=== PATIENT | female | born 1955 | race African-American/Black ===

== ENCOUNTER 2016-09-20 03:29 | Inpatient (IN) | payer OTHER ==
[~2016-09-20] VITALS: Ht 170.2 cm; Wt 146.5 kg
[~2016-09-20 03:29] MED LIST: ADVAIR DISKU 11 UNIT INH; AMBIEN 10MG10 MG PO; ASPIRIN81 M1 PO; CARVEDILOL6.25 MG PO; COLACE100 MG PO; COREG 3.125M3.125 MG PO; COREG12.5 MG PO; DEXILANT60 MG PO; FLEXERIL10 MG PO; LASIX20 MG PO; LIPITOR80 MG PO; LISINOPRIL10 MG PO; LISINOPRIL40 MG PO; OXYCODONE HCL30 MG PO; PROTONIX 40MG T40 MG PO; REGLAN10 MG PO; SINGULAIR10 MG PO
--- NOTE | 2016-09-20 03:31 | ED CARDIAC/CP/PALPITATIONS ---
History of Present Illness General Chief Complaint: Chest Pain Stated Complaint: CP Source: patient, old records, EMS Exam Limitations: no limitations Vital Signs & Intake/Output Vital Signs & Intake/Output Vital Signs Date Time Temp Pulse Resp B/P Pulse O2 O2 Flow FiO2 Ox Delivery Rate 09/20 0719 97.8 80 18 138/60 99 Nasal 2.0L Cannula 09/20 0651 69 20 153/71 99 Nasal 2.0L Cannula 09/20 0340 98 Nasal 2.0L Cannula 09/20 0336 97.9 80 18 160/70 100 Allergies Coded Allergies: ibuprofen (Severe, ANAPHYLAXIS 09/02/15) morphine (Severe, ANAPHYLAXIS 09/02/15) oxycodone (From OXYCONTIN) (Severe, ANAPHYLAXIS 09/02/15) Reconcile Medications Aspirin 81 MG CTB 81 MG PO D HEART (Reported) Atorvastatin (Atorvastatin Calcium) 80 MG TAB 80 MG PO D HEART (Reported) Carvedilol (Coreg) 12.5 MG TAB 1 TAB PO BID HEART CYCLOBENZAPRINE HCL (Flexeril) 10 MG TAB 15 MG PO BID MUSCLE (Reported) Dexlansoprazole (Dexilant) 60 MG CAP.DR.BP 1 CAP PO DAILY GERD (Reported) Docusate Sodium (Colace) 100 MG SGL 1 CAP PO BID STOOL SOFTENER (Reported) Fluticasone-Salmeterol (Advair 100-50 Diskus) 1 UNIT INH 1 PUFF INH BID ASTHMA (Reported) Furosemide (Lasix) 20 MG TAB 1 TAB PO DAILY FLUID OVERLOAD Lisinopril 40 MG TAB 1 TAB PO DAILY HTN (Reported) Montelukast Sodium (Singulair) 10 MG TAB 1 TAB PO DAILY ALLERGIES (Reported) OXYCODONE HCL (Oxycodone HCl) 30 MG TAB 1 TAB PO TID PAIN (Reported) Pantoprazole Sodium (Protonix) 40 MG TAB 1 TAB PO DAILY GERD (Reported) Zolpidem Tartrate (Ambien 10MG) 10 MG TAB 1 TAB PO QPM SLEEP (Reported) Triage Nurses Notes Reviewed? yes Onset: Abrupt Duration: hour(s): (2) Timing: multiple episodes today Quality/Severity: moderate, sharp Location: central Radiation: LEFT NECK, LEFT SHOULDER, LEFT UPPER BACK Activities at Onset: TALKING WITH FRIEND/SITTING Aspirin Today: 81 mg x 4 Associated Symptoms: DYSPNEA, DIAPHRESIS, NAUSEA HPI: This is a 61-year-old female with history of hypertension, coronary disease status post angioplasty in 2009 who presents to the ER from home for chief complaint of chest pain that started around 11:30. She says she was in her house talking to her girlfriend and laughing when she started to feel a tightness in her chest. She thought maybe it was her acid reflux and took some Dexilant with some relief. After that she felt a squeezing pain in her chest that radiated up to her neck in her ear and her job. She states that it then radiated to her left shoulder and left upper back. She became very nauseous and then very diaphoretic. Her girlfriend asked her if she was okay and then told her to take 2 baby aspirin. When it happened again they decided to call the embolus. She was given [address] to the hospital as well as a slight sunburn lingual nitroglycerin. Patient states that the pain in her ear and jaw and back are gone but she still has some persistent chest tightness. She rates the pain pain is 5 x 10. She is an active smoker still. She states the chest pain happened when she was at rest. Patient follows up with Dr. Grant cardiology. She has been compliant with her medications. (SHEEBA JARA,JED) Past History Travel History Traveled to [place] past 21 day No Medical History Any Pertinent Medical History? 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 BROTHER (CVA, hypertension and diabetes). SISTER (Hypertension, pulmonary embolism). Hx Contributory? No (SHEEBA JARA,JED) Review of Systems Review of Systems Constitutional: Denies: chills, fever. EENTM: Reports: no symptoms. Respiratory: Reports: short of breath. Denies: cough, sputum production. Cardiovascular: Reports: chest pain. Denies: palpitations, peripheral edema, syncope. GI: Reports: no symptoms. Genitourinary: Reports: no symptoms. Musculoskeletal: Reports: back pain, neck pain. Denies: muscle pain, muscle stiffness. Skin: Reports: no symptoms. Neurological/Psychological: Reports: no symptoms. Hematologic/Endocrine: Denies: bruising, bleeding, polyuria, polydipsia. Immunologic/Allergic: Denies: splenectomy. All Other Systems: Reviewed and Negative (JED ALY MD) Physical Exam Physical Exam General Appearance: well developed/nourished, alert, awake, anxious, mild distress Head: atraumatic, normal appearance Eyes: Bilateral: normal appearance, PERRL, EOMI. Ears, Nose, Throat: normal pharynx, normal ENT inspection, abnormal Tympanic (R) Neck: normal inspection, supple, full range of motion Respiratory: normal breath sounds, chest non-tender, no respiratory distress Cardiovascular: regular rate/rhythm Peripheral Pulses: 2+ radial (R), 2+ radial (L) Gastrointestinal: normal bowel sounds, OBESE Extremities: normal inspection, normal capillary refill, normal range of motion Neurologic/Psych: no motor/sensory deficits, awake, alert, oriented x 3 Skin: intact, normal color, warm/dry Core Measures ACS in differential dx? No Severe Sepsis Present: No Septic Shock Present: No (JED ALY MD) Progress Differential Diagnosis: AMI, aortic dissection, atrial fibrillation, costochondritis, musculoskeletal pain, myocarditis, pericarditis, pneumonia, pneumothorax, pulmonary embolism, PUD/GERD, WPW syndrome Plan of Care: Orders Procedure Date/time Status Heart Healthy Diet 09/20 B Active TROPONIN LEVEL 09/20 0730 Complete EKG 09/20 0730 Active Add-on Test (ER Only) 09/20 0454 Active Telemetry/Operations Superintendent 09/20 0349 Active B-TYPE NATRIURETIC PEP (BNP) 09/20 034 Complete TROPONIN LEVEL 09/20 033 Complete COMPREHENSIVE METABOLIC PANEL 09/20 033 Complete CBC WITHOUT DIFFERENTIAL 09/20 338 Complete EKG 09/20 033 Active Current Medications Sig/Lenny Start time Last Medication Dose Stop Time Status Admin Metoprolol Tartrate 25 MG ONCE ONE 09/20 0830 UNVr (Lopressor) 09/20 08 Nitroglycerin 1 GM ONCE ONE 09/20 0830 UNVr (Nitro-Bid) 09/20 0831 Laboratory Tests 09/20/16 0726: Troponin I < 0.01 09/20/16 0340: Anion Gap 10, Estimated GFR > 60, BUN/Creatinine Ratio 30.0 H, Glucose 101 H, Calcium 9.6, Total Bilirubin 0.5, AST 15, ALT 22, Alkaline Phosphatase 88, Troponin I < 0.01, [id number]-Q-Ltilhzxepwc Pept 321 H, Total Protein 7.6, Albumin 3.9 , Globulin 3.7, Albumin/Globulin Ratio 1.1, CBC w Diff NO MAN DIFF REQ, RBC 4.08 L, MCV 90.5, MCH 29.0, RDW 15.3 H, MPV 8.8, Gran % 75.0, Lymphocytes % 18.2 L , Monocytes % 4.1, Eosinophils % 2.6, Basophils % 0.1, Absolute Granulocytes 8.5 H, Absolute Lymphocytes 2.1, Absolute Monocytes 0.5, Absolute Eosinophils 0.3, Absolute Basophils 0, PUBS MCHC 32.0 L 4:49 AM CHEST PAIN FREE AFTER SL NITRO. 6:45 AM MESSAGE LEFT FOR DR GRANT TO CONSULT. (SHEEBA JARA,JED) Diagnostic Imaging: Viewed by Me: Radiology Read. Discussed w/RAD: Radiology Read. CXR Impression: PATIENT: STEPHON LOFTON PRESENT AGE: 61 PATIENT ACCOUNT NO: [id number] : 53 LOCATION: [facility] ORDERING PHYSICIAN: JED ALY MD SERVICE DATE: 09/20/16 EXAM TYPE: RAD - XRY-PORTABLE CHEST XRAY EXAMINATION: CHEST 1 VIEW CLINICAL INFORMATION: Chest pain. COMPARISON: 06/30/2015. TECHNIQUE: An AP view of the chest is provided. FINDINGS : The cardiac silhouette is at the upper limits of normal, but stable. There is interstitial prominence noted throughout both lungs The mediastinal and hilar contours are unremarkable. There are neither pleural effusions nor pneumothoraces. There are no consolidations. Partially visualized is intact cervical spine fusion hardware. IMPRESSION: Interstitial prominence throughout both lungs likely field sales representative of moderate vascular congestion. DICTATED BY: KALPESH LUCIANO MD DATE/TIME DICTATED:09/20/16445 DYE WINCH OPERATOR:CAMI DATE/TIME TRANSCRIBED:09/20/16445 CONFIDENTIAL, DO NOT COPY WITHOUT APPROPRIATE AUTHORIZATION. <Electronically signed in Other Vendor System> SIGNED BY: KALPESH LUCIANO MD 09/20/16 0451 Initial ED EKG: LBBB Prior EKG: unchanged Hand-Off Endorsed To: COOKIE SOL MD Endorsed Time: 0700 Pending: EKG, labs (JED ALY MD) Comments: 09/20/2016 8:30:42 AM I have just reevaluated stephon (she was asleep upon my arrival to the room). Upon awakening the patient states she is still experiencing chest and left jaw tightness. The discomfort is better than upon arrival. I discussed her case with Dr. Retana who feel she will need to be admitted for further evaluation and treatment. He has requested to hold on any anticoagulation until she is evaluated by either himself or Dr. Grant. (COOKIE SOL MD) Departure Departure Disposition: STILL A PATIENT Condition: Stable Clinical Impression Primary Impression: Chest pain at rest Referrals: PATIENT HAS NO PRIMARY CARE DR (PCP/Family) Departure Forms: Customer Survey General Discharge Information (JED ALY MD) Observation Note Spoke With: Stalin RETANA MD Place Patient In: Non-ED OBS Care Area Rationale for Observation: My rational for observation is as follows patient has a chest pain syndrome very concerning for an acute coronary syndrome. She is still having chest pain despite treatment in the emergency department. I do not feel she is a good candidate for outpatient management at this point and now requires for continuous cardiac monitoring (for the possibility of dysrhythmia), serial troponins and EKGs and consideration of imaging studies such as echocardiogram or cardiac catheterization. Stress test should also be considered.. (COOKIE SOL MD) Critical Care Note Critical Care Note Critical Care Time: non-applicable (JED ALY MD)
[2016-09-20 03:54] LABS: ABSOLUTE BASOPHIL COUNT 0 /CUMM (0.0-0.2); ABSOLUTE EOSINOPHIL COUNT 0.3 /CUMM (0.0-0.7); ABSOLUTE GRANULOCYTE CT 8.5 /CUMM (1.4-6.5); ABSOLUTE LYMPH COUNT 2.1 /CUMM (1.2-3.4); ABSOLUTE MONOCYTE COUNT 0.5 /CUMM (0.10-0.60); BASOPHIL % 0.1 % (0.0-2.0); EOSINOPHIL % 2.6 % (0-5); HEMATOCRIT 36.9 % (37-47); MEAN CORPUSCULAR VOLUME 90.5 FL (81.0-99.0); MEAN PLATELET VOLUME 8.8 FL (7.4-10.4); PLATELET COUNT 282 /CUMM (130-400); RBC DISTRIBUTION WIDTH 15.3 % (11.5-14.5); RED BLOOD CELL CT 4.08 /CUMM (4.20-5.40); WHITE BLOOD CELL COUNT 11.3 /CUMM (4.8-10.8)
[2016-09-20] MEDS ORDERED: DEXILANT60 M1 PO (04:05)
--- NOTE | 2016-09-20 04:51 | RADIOLOGY REPORT ---
EXAMINATION: CHEST 1 VIEW CLINICAL INFORMATION: Chest pain. COMPARISON: 06/30/2015. TECHNIQUE: An AP view of the chest is provided. FINDINGS: The cardiac silhouette is at the upper limits of normal, but stable. There is interstitial prominence noted throughout both lungs The mediastinal and hilar contours are unremarkable. There are neither pleural effusions nor pneumothoraces. There are no consolidations. Partially visualized is intact cervical spine fusion hardware. IMPRESSION: Interstitial prominence throughout both lungs likely field representative of moderate vascular congestion.
--- NOTE | 2016-09-20 09:02 | History & Physical ---
General Information and HPI MD Statement: I have seen and personally examined CRYSTAL CHAVARRIA and documented this H&P. The patient is a 61 year old F who presented with a patient stated chief complaint of [chest pain]. Source of Information: patient, family Exam Limitations: no limitations History of Present Illness: Mrs. Chavarria is a 61-year-old -[place] lady with a PMH of HFrEF with LVEF 35%, global hypokinesis (echo 05/20/2015), CAD S/P stent 2 (2009), negative dipyridamole stress test (05/21/2015), asthma (normal PFTs on 04/07/2016), HTN, chronic back and knee pain secondary to osteoarthritis who presents with complaints of chest pain while at rest. She reports intermittent episodes of epigastric discomfort Monday that she felt were due to reflux, relieved with excellent. Later yesterday evening at around 11:30 while sitting and smoking a cigarette she had sudden onset of bilateral chest tightness which radiated up towards her left shoulder/jaw and down the left arm lasting around 5 minutes. Symptoms were associated with some mild sweating. The symptoms again recurred at around 1 AM after she walks to the bathroom. She reports the same chest tightness radiating up towards her LUE, jaw/gums. This was also associated with increased sweating and nausea. She called EMS, took 2 additional ASA 81 mg which did not provide any relief. She did receive sublingual NTG 1 in route, aspirin and a second dose of Nitro-Bid on arrival in the ED that did relieve the pain. Over the past 2 months she reports intermittent episodes of yellow productive cough. She endorses difficulty falling asleep during the past 1 week due to a cough but denies any new symptoms in line with orthopnea, PND, exertional dyspnea or worsening swelling in her lower extremities. She reports that recent medication changes include increasing off carvedilol from 12.5mg BID up to 25 mg BID and discontinuation of lisinopril. Allergies/Medications Allergies: Coded Allergies: ibuprofen (Severe, ANAPHYLAXIS 09/02/15) morphine (Severe, ANAPHYLAXIS 09/02/15) oxycodone (From OXYCONTIN) (Severe, ANAPHYLAXIS 09/02/15) Home Med list Aspirin 81 MG CTB 81 MG PO D HEART (Reported) Atorvastatin (Atorvastatin Calcium) 80 MG TAB 80 MG PO D HEART (Reported) CYCLOBENZAPRINE HCL (Flexeril) 10 MG TAB 15 MG PO BID MUSCLE (Reported) Dexlansoprazole (Dexilant) 60 MG ROCKY.BP 1 CAP PO DAILY GERD (Reported) Docusate Sodium (Colace) 100 MG SGL 1 CAP PO BID STOOL SOFTENER (Reported) Fluticasone-Salmeterol (Advair 100-50 Diskus) 1 UNIT INH 1 PUFF INH BID ASTHMA (Reported) Furosemide (Lasix) 20 MG TAB 1 TAB PO DAILY FLUID OVERLOAD Montelukast Sodium (Singulair) 10 MG TAB 1 TAB PO DAILY ALLERGIES (Reported) OXYCODONE HCL (Oxycodone HCl) 30 MG TAB 1 TAB PO TID PAIN (Reported) Zolpidem Tartrate (Ambien 10MG) 10 MG TAB 1 TAB PO QPM SLEEP (Reported) Past History Travel History Traveled to [place] past 21 day No Medical History Neurological: NONE EENT: NONE Cardiovascular: hypertension, 2 STENTS Respiratory: asthma, SLEEP APNEA Gastrointestinal: GERD Hepatic: NONE Renal: NONE Musculoskeletal: osteoarthritis Psychiatric: NONE Endocrine: NONE Blood Disorders: NONE Cancer(s): NONE 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 BROTHER (CVA, hypertension and diabetes). SISTER (Hypertension, pulmonary embolism). Psychosocial History Where do you live? Home Services at Home: None Smoking Status: Current Everyday Smoker ETOH Use: occasional use Functional Ability ADLs Independent: dressing, eating, toileting, bathing. Ambulation: independent Review of Systems Review of Systems Constitutional: Reports: see HPI. EENTM: Reports: no symptoms. Cardiovascular: Reports: see HPI. Respiratory: Reports: see HPI. GI: Reports: see HPI. Musculoskeletal: Reports: no symptoms. Skin: Reports: no symptoms. Hematologic/Endocrine: Reports: no symptoms. Exam & Diagnostic Data Last 24 Hrs of Vital Signs/I&O Vital Signs Date Time Temp Pulse Resp B/P Pulse O2 O2 Flow FiO2 Ox Delivery Rate 09/20 1018 99 Nasal Cannula 09/20 1012 98.0 70 18 128/66 99 Nasal 2.0L Cannula 09/20 0849 98.2 68 131/60 09/20 0848 98.2 74 18 131/60 99 Nasal 2.0L Cannula 09/20 0719 97.8 80 18 138/60 99 Nasal 2.0L Cannula 09/20 0651 69 20 153/71 99 Nasal 2.0L Cannula 09/20 0340 98 Nasal 2.0L Cannula 09/20 0336 97.9 80 18 160/70 100 Intake & Output 09/20 1600 09/20 0800 09/20 0000 Intake Total 120 0 Output Total Balance 120 0 Intake, Oral 120 0 Patient 323 lb 323 lb Weight Physical Exam General Appearance Alert, Cooperative, No Acute Distress Skin No Breakdown HEENT EOMI, Mucous Membr. moist/pink Cardiovascular Regular Rate, Normal S1, Normal S2, Distant heart sounds. Systolic murmur grade 2/6 in the aortic region. Thrill present in the pulmonic region Lungs Normal Air Movement, Distant breath sounds Abdomen Normal Bowel Sounds, Soft, No Tenderness Extremities Normal Pulses, 1+ pitting eedema BL LE Last 24 Hrs of Labs/Abbe: Laboratory Tests 09/20/16 0726: Troponin I < 0.01 09/20/16 0340: Anion Gap 10, Estimated GFR > 60, BUN/Creatinine Ratio 30.0 H, Glucose 101 H, Calcium 9.6, Phosphorus Pending, Magnesium Pending, Total Bilirubin 0.5, AST 15, ALT 22, Alkaline Phosphatase 88, Troponin I < 0.01, Lgg-K-Icgxgmpzhhs Pept 321 H, Total Protein 7.6, Albumin 3.9, Globulin 3.7, Albumin/Globulin Ratio 1.1, TSH Pending, Free T4 Pending, CBC w Diff NO MAN DIFF REQ, RBC 4.08 L, MCV 90.5, MCH 29.0, RDW 15.3 H, MPV 8.8, Gran % 75.0, Lymphocytes % 18.2 L, Monocytes % 4.1, Eosinophils % 2.6, Basophils % 0.1, Absolute Granulocytes 8.5 H, Absolute Lymphocytes 2.1, Absolute Monocytes 0.5, Absolute Eosinophils 0.3, Absolute Basophils 0, PUBS MCHC 32.0 L Diagnostic Data EKG Results Sinus rhythm, HR 59. LBBB. TN interval 180. QTC 484 CXR Results Interstitial prominence throughout both lungs likely fundraising sale representative of moderate vascular congestion. Assessment/Plan Assessment: 61-year-old -[place] lady with a PMH of HFrEF with LVEF 35%, global hypokinesis (echo 05/20/2015), CAD S/P stent 2 (2009), negative dipyridamole stress test (05/21/2015), asthma (normal PFTs on 04/07/2016), HTN, chronic back and knee pain secondary to osteoarthritis who presents with complaints of chest pain while at rest. Symptoms occurred twice with what she describes as chest tightness radiating towards the left chest wall, Sussy, gums and down the left arm. First episode lasted 5 minutes, the second episode lasting until she arrived in the ED and received her second dose of nitroglycerin. Recent medication changes include carvedilol 12.5 mg BID increased to 25 mg BID, discontinuation of lisinopril. VS on admission: BP 160/70, HR 80, RR 18, SPO2 100% on 2 LNC, T 97.9 Pertinent labs: WBC 11.3, H&H 11.8/36.9, platelets 282K, sodium 147, potassium 3.8,, chloride 105, bicarbonate 31, BUN/CR 21/0.7 Troponin: 0.01, 0.01 ProBNP: 300 and Chest x-ray as indicated above Problem list: 1. Unstable angina 2. History of HFrEF with LVEF 35%, global hypokinesis (echo 05/20/2015), CAD S/P stent 2 (2009) 3. CAD s/p stent placement 4. Asthma 5. Hypertension 6. GERD 7. Chronic pain Plan: * Admit to telemetry for continuous cardiac monitoring * Repeat EKG/troponin at 1300 hrs. * We'll continue her on Coreg, ASA 81 mg, atorvastatin 80 mg. Follow-up lipid panel in the a.m. * We'll discuss with cardiology if the need for repeat stress test versus cath with applying her case * Mild hypokalemia of 3.8. We'll replete with 40 mEq K-Dur * Follow-up magnesium and phosphorus levels and replete if below 2.0 * No evidence of decompensation at this time. ProBNP 321 though can be falsely low tih her cardiac Hx. Will continue on Lasix 20 mg daily * Mechelle Mata TRCs for respiratory care * Continue with dexilant for reflux symptoms * Heart healthy diet * Lovenox for DVT prophylaxis * Full code * Nicotine patch for tobacco dependence As Ranked By This Provider Problem List: 1. Unstable angina 2. HFrEF (heart failure with reduced ejection fraction) 3. CAD (coronary artery disease) 4. Left bundle-branch block 5. Asthma 6. Tobacco dependence 7. Gastro-esophageal reflux Core Measures/Miscellaneous Acute Coronary Syndrome ACS Diagnosis: No Cerebrovascular Accident CVA/TIA Diagnosis: No Congestive Heart Failure CHF Diagnosis: No Venous Thromboembolism VTE Risk Factors: Age > 40 [facility] d/t: No contraindications No VTE Pharm Prophylaxis d/t: No contraindications VTE Diagnosis: No VTE Type: NONE VTE Confirmed by (Test): NONE Severe Sepsis Severe Sepsis Present: No Septic Shock Septic Shock Present: No Miscellaneous Documentation Attending Case Discussed With: TIKA ECHOLS MD Primary Care Physician: PATIENT HAS NO PRIMARY CARE DR Patient sees these Specialists Cardiology (Dr. Echols) Level of Patient Care: Telemetry Resident Review Statement Resident Statement: examined this patient, discussed with internal affairs investigator, agreed with internal affairs investigator, discussed with family, reviewed EMR data (avail), discussed with case mgmt
[2016-09-20 10:12] VITALS: BP 128/66
--- NOTE | 2016-09-20 11:10 | Cons- Cardiology ---
See Addendum POLLY PETER MD 09/20/16 1110: General Information and HPI Consulting Request Date of Consult: 09/20/16 Requested By: TIKA GRANT MD Reason for Consult: CHEST PAIN Source of Information: patient, family, old records Exam Limitations: no limitations History of Present Illness: Ms. Chavarria is a 61-year-old lady with a medical history of hypertension, on a artery disease status post stenting back in 2009, a recurrent cardiac catheterization in 2011 without any stenting, obesity, hyperlipidemia, hypertension, COPD and osteoarthritis that presented to the emergency room while experiencing chest pain at rest. A cardiology consultation was requested for the same. She initially thought chest pain was related to GERD and took some to excellent. She then noted radiating chest pain to the jaw and left upper shoulder. She also complained of nausea and became very diaphoretic. She took 2 baby aspirin at home and then received another 2 baby aspirin in the ambulance on her way to the emergency room. Initially her chest pain was 10 out of 10 and after nitroglycerin it is now currently 3 out of 10. Allergies/Medications Allergies: Coded Allergies: ibuprofen (Severe, ANAPHYLAXIS 09/02/15) morphine (Severe, ANAPHYLAXIS 09/02/15) oxycodone (From OXYCONTIN) (Severe, ANAPHYLAXIS 09/02/15) Home Med List: Aspirin 81 MG CTB 81 MG PO D HEART (Reported) Atorvastatin (Atorvastatin Calcium) 80 MG TAB 80 MG PO D HEART (Reported) CYCLOBENZAPRINE HCL (Flexeril) 10 MG TAB 15 MG PO BID MUSCLE (Reported) Dexlansoprazole (Dexilant) 60 MG CAP.DR.BP 1 CAP PO DAILY GERD (Reported) Docusate Sodium (Colace) 100 MG SGL 1 CAP PO BID STOOL SOFTENER (Reported) Fluticasone-Salmeterol (Advair 100-50 Diskus) 1 UNIT INH 1 PUFF INH BID ASTHMA (Reported) Furosemide (Lasix) 20 MG TAB 1 TAB PO DAILY FLUID OVERLOAD Montelukast Sodium (Singulair) 10 MG TAB 1 TAB PO DAILY ALLERGIES (Reported) OXYCODONE HCL (Oxycodone HCl) 30 MG TAB 1 TAB PO TID PAIN (Reported) Zolpidem Tartrate (Ambien 10MG) 10 MG TAB 1 TAB PO QPM SLEEP (Reported) Review of Systems Review of Systems Constitutional: Reports: see HPI. 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 BROTHER (CVA, hypertension and diabetes). SISTER (Hypertension, pulmonary embolism). Psychosocial History Where Do You Live? Home Services at Home: None Smoking Status: Current Everyday Smoker ETOH Use: occasional use Functional Ability ADLs Independent: dressing, eating, toileting, bathing. Ambulation: independent Exam & Diagnostic Data Vital Signs and I&O Vital Signs Date Time Temp Pulse Resp B/P Pulse O2 O2 Flow FiO2 Ox Delivery Rate 09/20 1018 99 Nasal Cannula 09/20 1012 98.0 70 18 128/66 99 Nasal 2.0L Cannula 09/20 0849 98.2 68 131/60 09/20 0848 98.2 74 18 131/60 99 Nasal 2.0L Cannula 09/20 0719 97.8 80 18 138/60 99 Nasal 2.0L Cannula 09/20 0651 69 20 153/71 99 Nasal 2.0L Cannula 09/20 0340 98 Nasal 2.0L Cannula 09/20 0336 97.9 80 18 160/70 100 Intake & Output 09/20 1600 09/20 0800 09/20 0000 09/19 1600 09/19 0800 09/19 0000 Intake Total 120 0 Output Total Balance 120 0 Intake, Oral 120 0 Patient 323 lb 323 lb Weight Physical Exam General Appearance: well developed/nourished, no apparent distress, alert, awake , comfortable, obese Eyes: Bilateral: normal appearance, PERRL, EOMI. Ears, Nose, Throat: normal pharynx, normal ENT inspection Respiratory: normal breath sounds, chest non-tender Cardiovascular: regular rate/rhythm Gastrointestinal: normal bowel sounds, soft, non-tender Diagnostic Data EKG Results Rate 59, TN 180, QRS 158, QTC 484 Sinus rhythm, LBBB CXR Results PATIENT: CRYSTAL CHAVARRIA PRESENT AGE: 61 PATIENT ACCOUNT NO: [id number] : 53 LOCATION: [facility] ORDERING PHYSICIAN: JED ALY MD SERVICE DATE: 09/20/16 EXAM TYPE: RAD - XRY-PORTABLE CHEST XRAY EXAMINATION: CHEST 1 VIEW CLINICAL INFORMATION: Chest pain. COMPARISON: 06/30/2015. TECHNIQUE: An AP view of the chest is provided. FINDINGS: The cardiac silhouette is at the upper limits of normal, but stable. There is interstitial prominence noted throughout both lungs The mediastinal and hilar contours are unremarkable. There are neither pleural effusions nor pneumothoraces. There are no consolidations. Partially visualized is intact cervical spine fusion hardware. IMPRESSION: Interstitial prominence throughout both lungs likely physician relations representative of moderate vascular congestion. DICTATED BY: KALPESH LUCIANO MD DATE/TIME DICTATED:09/20/16445 COOK NIGHT:[place] DATE/TIME TRANSCRIBED:09/20/16445 CONFIDENTIAL, DO NOT COPY WITHOUT APPROPRIATE AUTHORIZATION. <Electronically signed in Other Vendor System> SIGNED BY: KALPESH LUCIANO MD 09/20/16 0451 Assessment/Plan Assessment/Plan ASSESSMENT- 1. Unstable angina 2. [place] CAD s/p stents in 2009 3. HTN 4. HLD 5. Current nicotine use 6. COPD 7. HFrEF, echo May 2015 showed an EF of 35% Presantine Stress test 05/21/15- IMPRESSION: Abnormal study with fixed perfusion abnormalities which are likely diffuse, with some sparing of the lateral wall. No regions of reversible ischemia are visualized. There is moderate left ventricular chamber dilatation and moderately to markedly severe diffuse left ventricular hypokinesis. Left ventricular ejection fraction is markedly depressed. PLAN- - Trend troponin and EKG - Obtain echocardiogram - Continue aspirin, statin, Lasix at home doses - Start Coreg 3.125 mg twice a day - Start on heparin drip for now, will consider repeating presantine nuclear vs transfer for cath based off the results of the echo - Obtain reports from [facility] regarding her cath's in 2009 and 2011 Consult Acknowledgment - Thank you for your consult request. KALPESH RETANA MD 09/20/162014: Assessment/Plan Assessment/Plan Attending Addendum: The patient was seen and examined by me and all available data, including ECGs, were personally reviewed by myself. The case was discussed with the patient and her as well as the medical housestaff. I agree with the plan as outlined above. Consult Acknowledgment - Thank you for your consult request.
[2016-09-20 13:15] VITALS: BP 136/70
[2016-09-20 13:25] LABS: PT 11.7 SEC (9.4-12.5); PTT 35 SEC (25-37)
[2016-09-20 16:22] VITALS: BP 142/76
--- NOTE | 2016-09-20 20:02 | ECHOCARDIOGRAM REPORT ---
CRYSTAL LOFTON Age: 61 : 1955 Gender: F Exam Date: 09/20/2016 16:46 Exam Location: [address] Ht (in): 67 Wt (lb): 323 BSA: 2.72 BP: 136 / 70 Ordering Physician: DONAVAN REIS MD Referring Physician: Sherrie Moncada MD Technologist: Shonna Tapia [facility] Room Number: 174-01 Indications: CHEST PAIN Rhythm: Sinus Technical Quality: Fair FINDINGS Left Ventricle Mild left ventricular dilatation. Left ventricular wall thickness increased. Normal left ventricular ejection fraction estimated at 55-60%. Abnormal septal motion consistent with left bundle branch block. Right Ventricle Right ventricle not well visualized, grossly normal. Right Atrium Normal right atrial size. Left Atrium Moderate left atrial dilatation. Mitral Valve Mild thickening/calcification of the anterior mitral valve leaflet. Mitral annular calcification. Moderate mitral regurgitation. Aortic Valve Trileaflet aortic valve. Diffuse thickening of the aortic valve cusps with reduced excursion. Mild aortic stenosis. Mild aortic regurgitation. Tricuspid Valve Tricuspid valve not well visualized, grossly normal. Pulmonic Valve Pulmonic valve not well visualized, grossly normal. Mild pulmonic regurgitation. Pericardium No pericardial effusion. Great Vessels Aortic root and proximal ascending aorta not well visualized, grossly normal. CONCLUSIONS 1. This was a technically difficult and limited examination. 2. Fibrocalcific degeneration is present in the aortic valve with mild valvular stenosis (PG 22 mmHg; MG 13 mmHg; BLADIMIR 2.3 cm2) and mild aortic insufficiency. 3. Thickening and calcification of the mitral leaflets is present with anular calcification and moderate eccentric mitral insufficiency with moderate left atrial enlargement. 4. There is no significant pericardial fluid present. 5. The left ventricular chamber is mildly dilated with eccentric hypertrophy and an ejection fraction of greater than 55%. Abnormal septal motion is present with mild hypokinesia of the distal septum. 6. The right heart structures were not optimally assessed. Minimal to mild tricuspid and pulmonic insufficiency are present. The RV systolic pressure could not be accurately assessed. Sherrie Moncada M.D. (Electronically Signed) Final Date: 20 September 2016 20:01 MEASUREMENTS (Male / Female) Normal Values 2D ECHO LV Diastolic Diameter PLAX 6.0 cm 4.2 - 5.9 / 3.9 - 5.3 cm LV Systolic Diameter PLAX 3.7 cm 2.1 - 4.0 cm LV Fractional Shortening PLAX 38.3 % 25 - 46 % LV Ejection Fraction 2D Teich 67.7 % IVS Diastolic Thickness 1.2 cm LVPW Diastolic Thickness 1.2 cm LV Relative Wall Thickness 0.4 RV Internal Dim ED PLAX 2.7 cm 1.9 - 3.8 cm LVOT Diameter 2.1 cm Aortic Root Diameter 2.7 cm LA Systolic Diameter LX 5.2 cm 3.0 - 4.0 / 2.7 - 3.8 cm LA Volume 43.0 cm 18 - 58 / 22 - 52 cm Ascending Aorta Diameter 2.7 cm DOPPLER AV Peak Velocity 247.0 cm/s AV Peak Gradient 24.4 mmHg AV Mean Velocity 171.0 cm/s AV Mean Gradient 13.0 mmHg AV Velocity Time Integral 54.1 cm AI Deceleration [place] 266.0 cm/s AI Peak Velocity 417.0 cm/s AI Pressure Half Time 460.0 ms AI Peak Gradient 69.6 mmHg LVOT Peak Velocity 138.0 cm/s LVOT Peak Gradient 7.6 mmHg LVOT Mean Velocity 94.8 cm/s LVOT Mean Gradient 4.0 mmHg LVOT Velocity Time Integral 31.2 cm LVOT Stroke Volume 108.1 cm AV Area Cont Eq vti 2.0 cm AV Area Cont Eq pk 1.9 cm MV Peak Velocity 135.0 cm/s MV Peak Gradient 7.3 mmHg MV Mean Velocity 78.5 cm/s MV Mean Gradient 3.0 mmHg Mitral E Point Velocity 112.0 cm/s Mitral A Point Velocity 135.0 cm/s Mitral E to A Ratio 0.8 MV PHT Velocity 110.0 cm/s MV Deceleration [place] 304.0 cm/s MV Pressure Half Time 108.6 ms MV Area PHT 2.0 cm MV Deceleration Time 185.0 ms PV Peak Velocity 120.0 cm/s PV Peak Gradient 5.8 mmHg PV Mean Velocity 69.5 cm/s PV Mean Gradient 2.0 mmHg PV Velocity Time Integral 22.0 cm LV E' Lateral Velocity 4.7 cm/s Mitral E to LV E' Lateral Ratio 23.9 LV E' Septal Velocity 5.8 cm/s Mitral E to LV E' Septal Ratio 19.5
[2016-09-20 21:48] LABS: PTT 32 SEC (25-37)
[2016-09-20 22:38] VITALS: BP 144/64
[2016-09-21 04:29] LABS: ABSOLUTE BASOPHIL COUNT 0 /CUMM (0.0-0.2); ABSOLUTE EOSINOPHIL COUNT 0.3 /CUMM (0.0-0.7); ABSOLUTE MONOCYTE COUNT 0.6 /CUMM (0.10-0.60); BASOPHIL % 0.3 % (0.0-2.0); EOSINOPHIL % 3.7 % (0-5); GRANULOCYTE % 66.3 % (42.2-75.2); HEMATOCRIT 32.6 % (37-47); MEAN CORPUSCULAR HGB 28.9 PG (27.0-31.0); MEAN CORPUSCULAR HGB CONC 32.3 G/DL (33.0-37.0); MEAN CORPUSCULAR VOLUME 89.5 FL (81.0-99.0); MEAN PLATELET VOLUME 8.2 FL (7.4-10.4); PLATELET COUNT 281 /CUMM (130-400); RBC DISTRIBUTION WIDTH 15.4 % (11.5-14.5); RED BLOOD CELL CT 3.64 /CUMM (4.20-5.40)
[2016-09-21 04:47] LABS: PTT > 120 SEC (25-37)
--- NOTE | 2016-09-21 07:21 | PN- Housestaff ---
Subjective Follow-up For: 1. Chest pain 2. Unstable angina Complaints: no complaints Tele-Events Since Last Visit: Age-related from 96-104, no evidence Subjective: The patient was lying comfortably in bed, in no acute distress, no current chest pain, lightheadedness, nausea vomiting or diarrhea. Review of Systems Constitutional: Reports: see HPI. EENTM: Reports: no symptoms. Cardiovascular: Reports: peripheral edema. Denies: chest pain, orthopena, palpitations. Respiratory: Denies: cough, hemoptysis, orthopnea, short of breath. Gastrointestinal: Reports: no symptoms. Genitourinary: Reports: no symptoms. Musculoskeletal: Reports: no symptoms. Objective Last 24 Hrs of Vital Signs/I&O Vital Signs Date Time Temp Pulse Resp B/P Pulse O2 O2 Flow FiO2 Ox Delivery Rate 09/21 08 98.2 65 18 158/70 96 Room Air 09/20 2238 98.4 76 20 144/64 96 Room Air 09/20 2214 Room Air Room Air 09/20 2210 74 144/64 09/20 1622 98.2 71 20 142/76 97 Room Air 09/20 1322 97.6 60 18 136/70 98 Room Air 09/20 1315 97.6 60 18 136/70 98 Room Air Intake & Output 09/21 1600 09/21 0800 09/21 0000 Intake Total 267 640 Output Total Balance 267 640 Intake, IV 217 160 Intake, Oral 50 480 Number 0 Bowel Movements Physical Exam General Appearance: Alert, Oriented X3, Cooperative, No Acute Distress Neck: Supple, No JVD Cardiovascular: Normal S1, Normal S2, No Murmurs, irregularly irregular Lungs: Clear to Auscultation, Normal Air Movement Abdomen: Normal Bowel Sounds, Soft, No Tenderness Neurological: Normal Speech, Strength at 5/5 X4 Ext Extremities: 1+ ankle edema Vascular: Normal Pulses Current Medications: Current Medications Sig/Lenny Start time Last Medication Dose Route Stop Time Status Admin Acetaminophen 650 MG Q6P PRN 09/20 1015 AC PO Albuterol Sulfate 2 PUF Q4 HRS NEEDED PRN 09/20 2230 AC INH Aspirin 81 MG DAILY 09/21 1000 AC PO Atorvastatin Calcium 80 MG 1700 09/20 1700 AC 09/20 PO 1824 Budesonide/ 2 PUF BID 09/20 1042 AC 09/20 Formoterol Fumarate INH 2210 Carvedilol 3.125 MG BID 09/20 2199 DC 09/20 PO 2210 Cyclobenzaprine HCl 15 MG BID 09/20 2200 AC 09/20 PO 220 Docusate Sodium 100 MG BID 09/20 2199 AC 09/20 PO 221 Enoxaparin Sodium 40 MG DAILY 09/21 1000 CAN SC Furosemide 0 .STK-MED ONE 09/20 1124 DC PO Furosemide 20 MG DAILY 09/20 1043 AC 09/20 PO 1125 Heparin Sodium 8,800 UNIT ONCE ONE 09/20 2199 DC 09/20 (Porcine) IV 09/20 Heparin Sodium 10,000 UNIT .STK-MED ONE 09/20 215 DC (Porcine) IV 09/20 215 Heparin Sodium 25,000 UNIT Q24H 09/20 1215 AC 09/20 (Porcine) IV 1358 Sodium Chloride 500 ML Magnesium Sulfate 1 GM Q2H 09/21 0730 AC Dextrose/Water 100 ML IV 09/21 1129 Montelukast Sodium 10 MG DAILY 09/20 1043 AC 09/20 PO 1143 Nicotine 0 .STK-MED ONE 09/20 1125 DC TOP Nicotine 14 MG DAILY 09/20 1108 AC 09/20 TOP 1125 Omeprazole 0 .STK-MED ONE 09/20 1409 DC PO Omeprazole 40 MG DAILY AC 09/20 1300 AC 09/21 PO 0529 Oxycodone HCl 30 MG TID 09/20 1043 AC 09/20 PO 220 Potassium Chloride 0 .STK-MED ONE 09/20 1124 DC PO Zolpidem Tartrate 10 MG QPM 09/20 2199 AC 09/20 PO 220 Last 24 Hrs of Lab/Abbe Results Last 24 Hrs of Labs/Mics: Laboratory Tests 09/21/16 0410: Anion Gap 6, Estimated GFR > 60, BUN/Creatinine Ratio 30.0 H, Magnesium 1.6, Triglycerides 37, Cholesterol 112, LDL Cholesterol, Calc 69, HDL Cholesterol 36 L, Cholesterol/HDL Ratio 3, APTT > 120 *H, CBC w Diff NO MAN DIFF REQ, RBC 3.64 L, MCV 89.5, MCH 28.9, RDW 15.4 H, MPV 8.2, Gran % 66.3, Lymphocytes % 22.7, Monocytes % 7.0, Eosinophils % 3.7, Basophils % 0.3, Absolute Granulocytes 6.0, Absolute Lymphocytes 2.0, Absolute Monocytes 0.6, Absolute Eosinophils 0.3, Absolute Basophils 0, PUBS MCHC 32.3 L 09/20/16 2105: APTT 32 09/20/16 1203: Troponin I < 0.01 Orders ECHO Findings: Mild left ventricular dilatation. Left ventricular wall thickness increased. Normal left ventricular ejection fraction estimated at 55-60%. Abnormal septal motion consistent with left bundle branch block. Right Ventricle Right ventricle not well visualized, grossly normal. Right Atrium Normal right atrial size. Left Atrium Moderate left atrial dilatation. Mitral Valve Mild thickening/calcification of the anterior mitral valve leaflet. Mitral annular calcification. Moderate mitral regurgitation. Aortic Valve Trileaflet aortic valve. Diffuse thickening of the aortic valve cusps with reduced excursion. Mild aortic stenosis. Mild aortic regurgitation. Tricuspid Valve Tricuspid valve not well visualized, grossly normal. Pulmonic Valve Pulmonic valve not well visualized, grossly normal. Mild pulmonic regurgitation. Pericardium No pericardial effusion. Great Vessels Aortic root and proximal ascending aorta not well visualized, grossly normal. CONCLUSIONS 1. This was a technically difficult and limited examination. 2. Fibrocalcific degeneration is present in the aortic valve with mild valvular stenosis (PG 22 mmHg; MG 13 mmHg; BLADIMIR 2.3 cm2) and mild aortic insufficiency. 3. Thickening and calcification of the mitral leaflets is present with anular calcification and moderate eccentric mitral insufficiency with moderate left atrial enlargement. 4. There is no significant pericardial fluid present. 5. The left ventricular chamber is mildly dilated with eccentric hypertrophy and an ejection fraction of greater than 55%. Abnormal septal motion is present with mild hypokinesia of the distal septum. 6. The right heart structures were not optimally assessed. Minimal to mild tricuspid and pulmonic insufficiency are present. The RV systolic pressure could not be accurately assessed. Radiology Findings: The cardiac silhouette is at the upper limits of normal, but stable. There is interstitial prominence noted throughout both lungs The mediastinal and hilar contours are unremarkable. There are neither pleural effusions nor pneumothoraces. There are no consolidations. Partially visualized is intact cervical spine fusion hardware. IMPRESSION: Interstitial prominence throughout both lungs likely liability claims representative of moderate vascular congestion. Lines/Diet/Fluids Lines: peripheral lines Restraints: none Assessment/Plan Assessment: 61-year-old lady with a medical history of hypertension, coronary artery disease status post stent in 2009, recurrent cardiac cath in 2011 without any stenting, morbid obesity, hyperlipidemia, hypertension, COPD not on home oxygen, osteoarthritis who presents to the emergency department with chest pain at rest, radiating to the jaw and left upper shoulder associated with nausea and diaphoresis, 10/10, decreased to 3/10 after nitroglycerin and aspirin, admitted to telemetry for further management of her chest pain. Assessment and plan: 1. Unstable angina: - Patient presented with classic chest pain, was started on aspirin after loading dose of 325 mg, nitrates and statin - She was also started on heparin drip - 3 sets of troponin and EKG have been negative - Stress test due tomorrow - Cardiology on board - For now will continue with IV heparin, aspirin 81 mg by mouth daily, carvedilol 3.125 mg by mouth twice a day, atorvastatin 80 mg by mouth daily 2. Hyperlipidemia: - Lipid panel was checked that showed triglyceride of 37, total cholesterol 112, LDL 69, HDL 36 - Based on history of CAD, and current unstable angina, will continue on atorvastatin 80 mg by mouth daily 3. COPD: - Not in acute exacerbation, saturation 96% room air - We'll continue with inhalers - [facility] nebs 4. Hypomagnesemia: - 1.6 in am - We'll repeat adequately and recheck in a.m. 5. HFrEF, echo May 2015 showed an EF of 35%, echocardiogram from yesterday shows an EF of 55% to 60 - We'll continue with Lasix 20 mg by mouth daily - Not in florid CHF exacerbation 6. Hypertension: - We'll continue with carvedilol 7. History of smoking: - Continue with nicotine patch 8. Heart healthy diet 9. IV heparin as DVT prophylaxis 10. Full CODE STATUS Problem List: 1. Chest pain syndrome 2. Unstable angina 3. Hypertension 4. Tobacco dependence 5. CAD (coronary artery disease) Pain Ratin Pain Location: No pain Pain Goal: Remain pain free Pain Plan: Roxicodone by mouth 30 3 times a day Tylenol 650 mg every 6 when necessary Tomorrow's Labs & Rationales: CBC, BMP and magnesium to follow H&H and electrolytes DVT/Prophylaxis: pharmacological CBC, BMP and magnesium to follow H&H and electrolytes DVT/Prophylaxis: pharmacological
[2016-09-21 08:00] VITALS: BP 158/70
--- NOTE | 2016-09-21 11:46 | PN- Cardiology ---
Subjective Subjective: The patient is doing well today. She denies any further discomfort this morning. She notes that her symptoms improved after topical nitrates and institution of IV heparin. The pharmacologic nuclear stress test pending. Objective Vital Signs and I&Os Vital Signs Date Time Temp Pulse Resp B/P Pulse O2 O2 Flow FiO2 Ox Delivery Rate 09/21 0800 98.2 65 18 158/70 96 Room Air 09/20 2238 98.4 76 20 144/64 96 Room Air 09/20 2214 Room Air Room Air 09/20 2210 74 144/64 09/20 1622 98.2 71 20 142/76 97 Room Air 09/20 1322 97.6 60 18 136/70 98 Room Air 09/20 1315 97.6 60 18 136/70 98 Room Air Intake & Output 09/21 1600 09/21 0800 09/21 0000 09/20 1600 09/20 0800 09/20 0000 Intake Total 267 640 600 0 Output Total Balance 267 640 600 0 Intake, IV 217 160 Intake, Oral 50 480 600 0 Number 0 Bowel Movements Patient 323 lb 323 lb Weight Current Medications: Current Medications Sig/Lenny Start time Last Medication Dose Route Stop Time Status Admin Acetaminophen 650 MG Q6P PRN 09/20 1015 AC PO Albuterol Sulfate 2 PUF Q4 HRS NEEDED PRN 09/20 2230 AC INH Aspirin 81 MG DAILY 09/21 1000 AC PO Atorvastatin Calcium 80 MG 1700 09/20 1700 AC 09/20 PO 1824 Budesonide/ 2 PUF BID 09/20 1042 AC 09/20 Formoterol Fumarate INH 2210 Carvedilol 3.125 MG BID 09/21 1115 AC PO Carvedilol 3.125 MG BID 09/20 2200 DC 09/20 PO 2210 Cyclobenzaprine HCl 15 MG BID 09/20 2200 AC 09/20 PO 2209 Docusate Sodium 100 MG BID 09/20 2200 AC 09/20 PO 2210 Enoxaparin Sodium 40 MG DAILY 09/21 1000 CAN SC Furosemide 20 MG DAILY 09/20 1043 AC 09/20 PO 1125 Heparin Sodium 8,800 UNIT ONCE ONE 09/20 2199 DC 09/20 (Porcine) IV 09/20 2200 2200 Heparin Sodium 10,000 UNIT .STK-MED ONE 09/20 2156 DC (Porcine) IV 09/20 2157 Heparin Sodium 25,000 UNIT Q24H 09/20 1215 AC 09/20 (Porcine) IV 1358 Sodium Chloride 500 ML Magnesium Sulfate 1 GM Q2H 09/21 0730 DC Dextrose/Water 100 ML IV 09/21 1129 Montelukast Sodium 10 MG DAILY 09/20 1043 AC 09/20 PO 1143 Nicotine 14 MG DAILY 09/20 1108 AC 09/20 TOP 1125 Omeprazole 0 .STK-MED ONE 09/20 1409 DC PO Omeprazole 40 MG DAILY AC 09/20 1300 AC 09/21 PO 0529 Oxycodone HCl 30 MG TID 09/20 1043 AC 09/20 PO 2209 Zolpidem Tartrate 10 MG QPM 09/20 220 AC 09/20 PO 220 Results Last 48 Hrs of Labs/Mics: Laboratory Tests 09/21/16 0410: Anion Gap 6, Estimated GFR > 60, BUN/Creatinine Ratio 30.0 H, Magnesium 1.6, Triglycerides 37, Cholesterol 112, LDL Cholesterol, Calc 69, HDL Cholesterol 36 L, Cholesterol/HDL Ratio 3, APTT > 120 *H, CBC w Diff NO MAN DIFF REQ, RBC 3.64 L, MCV 89.5, MCH 28.9, RDW 15.4 H, MPV 8.2, Gran % 66.3, Lymphocytes % 22.7, Monocytes % 7.0, Eosinophils % 3.7, Basophils % 0.3, Absolute Granulocytes 6.0, Absolute Lymphocytes 2.0, Absolute Monocytes 0.6, Absolute Eosinophils 0.3, Absolute Basophils 0, PUBS MCHC 32.3 L 09/20/16 2105: APTT 32 09/20/16 1203: Troponin I < 0.01 09/20/16 0726: Troponin I < 0.01 09/20/16 0340: Anion Gap 10, Estimated GFR > 60, BUN/Creatinine Ratio 30.0 H, Glucose 101 H, Calcium 9.6, Phosphorus 3.6, Magnesium 1.6, Total Bilirubin 0.5, AST 15, ALT 22, Alkaline Phosphatase 88, Troponin I < 0.01, Far-C-Xsnrktcaygq Pept 321 H, Total Protein 7.6, Albumin 3.9, Globulin 3.7, Albumin/Globulin Ratio 1.1, TSH 1.560, Free T4 1.25, PT 11.7, INR 1.12, APTT 35, CBC w Diff NO MAN DIFF REQ, RBC 4.08 L, MCV 90.5, MCH 29.0, RDW 15.3 H, MPV 8.8, Gran % 75.0, Lymphocytes % 18.2 L, Monocytes % 4.1, Eosinophils % 2.6, Basophils % 0.1, Absolute Granulocytes 8.5 H, Absolute Lymphocytes 2.1, Absolute Monocytes 0.5, Absolute Eosinophils 0.3, Absolute Basophils 0, PUBS MCHC 32.0 L Assessment/Plan Assessment/Plan ASSESSMENT- 1. Unstable angina 2. [place] CAD s/p stents in 2009 3. HTN 4. HLD 5. Current nicotine use 6. COPD 7. HFrEF, echo May 2015 showed an EF of 35% Recommendations: -Continue current medication regimen. -Continue IV heparin pending nuclear stress test. -Further plans after the results of the nuclear stress test are available. Continue telemetry? Yes
[2016-09-21 15:30] VITALS: BP 138/78
[2016-09-21 17:04] LABS: PTT 36 SEC (25-37)
[2016-09-21] MEDS ORDERED: COREG6.25 M1 PO (18:30)
[2016-09-21 23:14] VITALS: BP 138/72
[2016-09-21 23:33] LABS: PTT 72 SEC (25-37)
--- NOTE | 2016-09-22 07:24 | PN- Housestaff ---
Subjective Follow-up For: 1. Unstable Angina Tele-Events Since Last Visit: NST 72 - 83, no events Subjective: No chest pain, patient feels well. Review of Systems Constitutional: Reports: no symptoms. Cardiovascular: Reports: no symptoms. Respiratory: Reports: no symptoms. Gastrointestinal: Reports: no symptoms. Genitourinary: Reports: no symptoms. Objective Last 24 Hrs of Vital Signs/I&O Vital Signs Date Time Temp Pulse Resp B/P Pulse O2 O2 Flow FiO2 Ox Delivery Rate 09/22 08 97.8 79 20 130/70 94 Room Air 09/21 2314 98.2 82 20 138/72 94 Room Air 09/21 2233 82 138/72 09/21 1530 98.3 77 20 138/78 95 Room Air 09/21 1455 65 158/70 Intake & Output 09/22 1600 09/22 0800 09/22 0000 Intake Total 290 880 Output Total Balance 290 880 Intake, IV 240 160 Intake, Oral 50 720 Physical Exam General Appearance: Alert, Oriented X3, Cooperative, No Acute Distress Cardiovascular: Regular Rate, Normal S1, Normal S2, No Murmurs Lungs: Clear to Auscultation, Normal Air Movement Abdomen: Normal Bowel Sounds, Soft, No Tenderness, No Hepatospenomegaly Neurological: Normal Speech, Strength at 5/5 X4 Ext, Normal Tone Extremities: Normal Pulses, positive for edema 1+ bilateral ankles Last 24 Hrs of Lab/Abbe Results Last 24 Hrs of Labs/Mics: Laboratory Tests 09/22/16 1155: APTT Pending 09/22/16 0650: Anion Gap 6, Estimated GFR > 60, BUN/Creatinine Ratio 24.3, Magnesium 1.9, CBC w Diff NO MAN DIFF REQ, RBC 3.65 L, MCV 89.1, MCH 29.5, RDW 15.5 H, MPV 9.1, Gran % 63.5, Lymphocytes % 26.0, Monocytes % 6.6, Eosinophils % 3.5, Basophils % 0.4, Absolute Granulocytes 5.2, Absolute Lymphocytes 2.1, Absolute Monocytes 0.5 , Absolute Eosinophils 0.3, Absolute Basophils 0, PUBS MCHC 33.1 09/21/16 2300: APTT 72 H 09/21/16 1550: APTT 36 Assessment/Plan Assessment: 61-year-old lady with a medical history of hypertension, coronary artery disease status post stent in 2009, recurrent cardiac cath in 2011 without any stenting, morbid obesity, hyperlipidemia, hypertension, COPD not on home oxygen, osteoarthritis who presents to the emergency department with chest pain at rest, radiating to the jaw and left upper shoulder associated with nausea and diaphoresis, 10/10, decreased to 3/10 after nitroglycerin and aspirin, admitted to telemetry for further management of her chest pain. Assessment and plan: 1. Unstable angina: - Patient presented with classic chest pain, was started on aspirin after loading dose of 325 mg, nitrates and statin - Heparin drip stopped today - 3 sets of troponin and EKG have been negative - Stress test today - DC planning to [facility] vs cardiac cath pending results 2. Hyperlipidemia: - Continue atorvastatin 80 mg by mouth daily 3. COPD: - Not in acute exacerbation, saturation 96% room air - We'll continue with inhalers - [facility] nebs 6. HFrEF, echo May 2015 showed an EF of 35%, echocardiogram from yesterday shows an EF of 55% to 60 - We'll continue with Lasix 20 mg by mouth daily - Not in florid CHF exacerbation 6. Hypertension: - We'll continue with carvedilol after she returns from stress test 7. History of smoking: - Continue with nicotine patch 8. Heart healthy diet 9. IV heparin as DVT prophylaxis 10. Full CODE STATUS Problem List: 1. Unstable angina Pain Ratin Pain Location: no pain Pain Goal: Remain pain free Pain Plan: PRN Tylenol Tomorrow's Labs & Rationales: Not needed DVT/Prophylaxis: pharmacological Discharge Plan Discharge Disposition: home Stable for Discharge? No Anticipated Discharge (Day): tomorrow If Discharged Today/In 24 Hrs: enter [facility] discharge ord, CMR done Not needed DVT/Prophylaxis: pharmacological Discharge Plan Discharge Disposition: home Stable for Discharge? No Anticipated Discharge (Day): tomorrow If Discharged Today/In 24 Hrs: enter [facility] discharge ord, CMR done
[2016-09-22 08:00] VITALS: BP 130/70
[2016-09-22 08:18] LABS: ABSOLUTE BASOPHIL COUNT 0 /CUMM (0.0-0.2); ABSOLUTE EOSINOPHIL COUNT 0.3 /CUMM (0.0-0.7); ABSOLUTE GRANULOCYTE CT 5.2 /CUMM (1.4-6.5); ABSOLUTE LYMPH COUNT 2.1 /CUMM (1.2-3.4); ABSOLUTE MONOCYTE COUNT 0.5 /CUMM (0.10-0.60); BASOPHIL % 0.4 % (0.0-2.0); EOSINOPHIL % 3.5 % (0-5); GRANULOCYTE % 63.5 % (42.2-75.2); HEMATOCRIT 32.6 % (37-47); MEAN CORPUSCULAR HGB 29.5 PG (27.0-31.0); MEAN CORPUSCULAR HGB CONC 33.1 G/DL (33.0-37.0); MEAN CORPUSCULAR VOLUME 89.1 FL (81.0-99.0); MEAN PLATELET VOLUME 9.1 FL (7.4-10.4); PLATELET COUNT 270 /CUMM (130-400); RBC DISTRIBUTION WIDTH 15.5 % (11.5-14.5); RED BLOOD CELL CT 3.65 /CUMM (4.20-5.40); WHITE BLOOD CELL COUNT 8.1 /CUMM (4.8-10.8)
[2016-09-22 14:05] LABS: PTT 97 SEC (25-37)
[2016-09-22 15:30] VITALS: BP 138/80
--- NOTE | 2016-09-22 18:56 | PN- Cardiology ---
Subjective Subjective: Stable without recurrendt symptoms Objective Vital Signs and I&Os Vital Signs Date Time Temp Pulse Resp B/P Pulse O2 O2 Flow FiO2 Ox Delivery Rate 09/22 1530 97.7 80 20 138/80 95 Room Air 09/22 0800 97.8 79 20 130/70 94 Room Air 09/21 2314 98.2 82 20 138/72 94 Room Air 09/21 2233 82 138/72 Intake & Output 09/22 1600 09/22 0800 09/22 0000 09/21 1600 09/21 0800 09/21 0000 Intake Total 480 897 551 8926 267 640 Output Total 600 855 Balance -120 290 880 345 267 640 Intake, IV 240 160 250 217 160 Intake, Oral 480 50 720 950 50 480 Number 1 0 Bowel Movements Output, Urine 600 855 Current Medications: Current Medications Sig/Lenny Start time Last Medication Dose Route Stop Time Status Admin Acetaminophen 650 MG Q6P PRN 09/20 1015 AC PO Albuterol Sulfate 2 PUF Q4 HRS NEEDED PRN 09/20 2230 AC INH Aspirin 81 MG DAILY 09/21 1000 AC 09/22 PO 1017 Atorvastatin Calcium 80 MG 1700 09/20 1700 AC 09/22 PO 1709 Budesonide/ 2 PUF BID 09/20 1042 AC 09/22 Formoterol Fumarate INH 1016 Carvedilol 3.125 MG BID 09/21 1115 DC 09/21 PO 09/22 0000 2233 Cyclobenzaprine HCl 15 MG BID 09/20 2200 AC 09/22 PO 1017 Dipyridamole 60 MG ONE ONE 09/22 1100 DC Dextrose/Water 28 ML IV 09/22 1129 Docusate Sodium 100 MG BID 09/20 2200 AC 09/22 PO 1017 Furosemide 20 MG DAILY 09/20 1043 AC 09/22 PO 1017 Heparin Sodium 25,000 UNIT Q24H 09/20 1215 DC 09/22 (Porcine) IV 1015 Sodium Chloride 500 ML Montelukast Sodium 10 MG DAILY 09/20 1043 AC 09/22 PO 1018 Nicotine 14 MG DAILY 09/20 1108 AC 09/22 TOP 1018 Omeprazole 40 MG DAILY AC 09/20 1300 AC 09/22 PO 0619 Oxycodone HCl 30 MG TID 09/20 1043 AC 09/22 PO 1709 Zolpidem Tartrate 10 MG QPM 09/20 2200 AC 09/21 PO 2237 Results Last 48 Hrs of Labs/Mics: Laboratory Tests 09/22/16 1155: APTT 97 H 09/22/16 0650: Anion Gap 6, Estimated GFR > 60, BUN/Creatinine Ratio 24.3, Magnesium 1.9, CBC w Diff NO MAN DIFF REQ, RBC 3.65 L, MCV 89.1, MCH 29.5, RDW 15.5 H, MPV 9.1, Gran % 63.5, Lymphocytes % 26.0, Monocytes % 6.6, Eosinophils % 3.5, Basophils % 0.4, Absolute Granulocytes 5.2, Absolute Lymphocytes 2.1, Absolute Monocytes 0.5 , Absolute Eosinophils 0.3, Absolute Basophils 0, PUBS MCHC 33.1 09/21/16 2300: APTT 72 H 09/21/16 1550: APTT 36 09/21/16 0410: Anion Gap 6, Estimated GFR > 60, BUN/Creatinine Ratio 30.0 H, Magnesium 1.6, Triglycerides 37, Cholesterol 112, LDL Cholesterol, Calc 69, HDL Cholesterol 36 L, Cholesterol/HDL Ratio 3, APTT > 120 *H, CBC w Diff NO MAN DIFF REQ, RBC 3.64 L, MCV 89.5, MCH 28.9, RDW 15.4 H, MPV 8.2, Gran % 66.3, Lymphocytes % 22.7, Monocytes % 7.0, Eosinophils % 3.7, Basophils % 0.3, Absolute Granulocytes 6.0, Absolute Lymphocytes 2.0, Absolute Monocytes 0.6, Absolute Eosinophils 0.3, Absolute Basophils 0, PUBS MCHC 32.3 L 09/20/165: APTT 32 Assessment/Plan Assessment/Plan ASSESSMENT- 1. Unstable angina 2. [place] CAD s/p stents in 2009 3. HTN 4. HLD 5. Current nicotine use 6. COPD 7. HFrEF, echo May 2015 showed an EF of 35% Recommendations: -Continue current medication regimen. -Discontinue IV heparin today -PTN nuclear stress test today -If nuclear stress test negative, discharge home tomorrow. Continue telemetry? Yes
[2016-09-22 22:51] VITALS: BP 124/78
--- NOTE | 2016-09-23 07:12 | PN- Housestaff ---
Subjective Follow-up For: 1. Unstable Angina Tele-Events Since Last Visit: SR 78-86, no events Subjective: Patient was sleeping comfortably. Did not report any complaints upon waking up. Has remained chest pain free. Review of Systems Constitutional: Reports: no symptoms. Cardiovascular: Reports: no symptoms. Respiratory: Reports: no symptoms. Gastrointestinal: Reports: no symptoms. Genitourinary: Reports: no symptoms. Musculoskeletal: Reports: no symptoms. Objective Last 24 Hrs of Vital Signs/I&O Vital Signs Date Time Temp Pulse Resp B/P Pulse O2 O2 Flow FiO2 Ox Delivery Rate 09/22 2251 98.0 79 20 124/78 95 Room Air 09/22 1530 97.7 80 20 138/80 95 Room Air Intake & Output 09/23 1600 09/23 0800 09/23 0000 Intake Total 240 400 Output Total Balance 240 400 Intake, Oral 240 400 Physical Exam General Appearance: Alert, Oriented X3, Cooperative, No Acute Distress Cardiovascular: Regular Rate, Normal S1, Normal S2, No Murmurs Lungs: Clear to Auscultation Abdomen: Normal Bowel Sounds, Soft, No Tenderness, No Hepatospenomegaly Neurological: Normal Gait, Normal Speech, Strength at 5/5 X4 Ext, Normal Tone Extremities: Normal Pulses, mild ankle edema Current Medications: Current Medications Sig/Lenny Start time Last Medication Dose Route Stop Time Status Admin Acetaminophen 650 MG Q6P PRN 09/20 1015 AC PO Albuterol Sulfate 2 PUF Q4 HRS NEEDED PRN 09/20 2230 AC INH Aspirin 81 MG DAILY 09/21 1000 AC 09/22 PO 1017 Atorvastatin Calcium 80 MG 1700 09/20 1700 AC 09/22 PO 1709 Budesonide/ 2 PUF BID 09/20 1042 AC 09/22 Formoterol Fumarate INH 2222 Cyclobenzaprine HCl 15 MG BID 09/20 2200 AC 09/22 PO 2216 Dipyridamole 60 MG ONE ONE 09/22 1100 DC Dextrose/Water 28 ML IV 09/22 1129 Docusate Sodium 100 MG BID 09/20 2200 AC 09/22 PO 2217 Furosemide 20 MG DAILY 09/20 1043 AC 09/22 PO 1017 Heparin Sodium 25,000 UNIT Q24H 09/20 1215 DC 09/22 (Porcine) IV 1015 Sodium Chloride 500 ML Montelukast Sodium 10 MG DAILY 09/20 1043 AC 09/22 PO 1018 Nicotine 14 MG DAILY 09/20 1108 AC 09/22 TOP 1018 Omeprazole 40 MG DAILY AC 09/20 1300 AC 09/23 PO 0642 Oxycodone HCl 30 MG TID 09/20 1043 AC 09/22 PO 2218 Zolpidem Tartrate 10 MG .STK-MED ONE 09/22 2038 DC PO 09/22 204 Zolpidem Tartrate 10 MG QPM 09/20 2200 AC 09/22 PO 2219 Last 24 Hrs of Lab/Abbe Results Last 24 Hrs of Labs/Mics: Laboratory Tests 09/22/16 1155: APTT 97 H Assessment/Plan Assessment: 61-year-old lady with a medical history of hypertension, coronary artery disease status post stent in 2009, recurrent cardiac cath in 2011 without any stenting, morbid obesity, hyperlipidemia, hypertension, COPD not on home oxygen, osteoarthritis who presents to the emergency department with chest pain at rest, radiating to the jaw and left upper shoulder associated with nausea and diaphoresis, 10/10, decreased to 3/10 after nitroglycerin and aspirin, admitted to telemetry for further management of her chest pain. Assessment and plan: 1. Unstable angina: - Patient presented with classic chest pain, was started on aspirin after loading dose of 325 mg, nitrates and statin - Heparin drip stopped yesterday - 3 sets of troponin and EKG have been negative - 1st part of stress test done yesterday, 2nd part to be done today - If negative, DC home today 2. Hyperlipidemia: - Continue atorvastatin 80 mg by mouth daily 3. COPD: - Not in acute exacerbation, saturation 96% room air - We'll continue with inhalers - [facility] nebs 6. HFrEF, echo May 2015 showed an EF of 35%, echocardiogram from yesterday shows an EF of 55% to 60 - We'll continue with Lasix 20 mg by mouth daily - Not in florid CHF exacerbation 6. Hypertension: - We'll continue with carvedilol after she returns from stress test 7. History of smoking: - Continue with nicotine patch 8. Heart healthy diet 9. IV heparin as DVT prophylaxis 10. Full CODE STATUS Problem List: 1. Unstable angina Pain Ratin Pain Location: None Pain Goal: Remain pain free Pain Plan: PRN Tylenol Tomorrow's Labs & Rationales: None DVT/Prophylaxis: pharmacological Discharge Plan Discharge Disposition: home
[2016-09-23 08:00] VITALS: BP 136/70
--- NOTE | 2016-09-23 08:27 | Discharge Summary ---
Visit Information Visit Dates Admission Date: 09/21/16 Discharge Date: 09/23/16 Hospital Course Course Attending Physician: Stalin RETANA MD Primary Care Physician: PATIENT HAS NO PRIMARY CARE DR Consulting Request: Consulting Specialty: Cardiology Consulting Physician: Dr. Retana Reason for Consult: Unstable Angina Hospital Course: 61-year-old lady with a medical history of hypertension, coronary artery disease status post stent in 2009, recurrent cardiac cath in 2011 without any stenting, morbid obesity, hyperlipidemia, hypertension, COPD not on home oxygen, osteoarthritis who presents to the emergency department with chest pain at rest, radiating to the jaw and left upper shoulder associated with nausea and diaphoresis, 10/10, decreased to 3/10 after nitroglycerin and aspirin, admitted to telemetry for further management of her chest pain. Problem List: 1. Unstable angina: The patient presented with typical chest pain, was started on IV heparin, ASA, Atorvastatin and bet manish. 3 sets of troponin and EKG have been negative. She underwent a stress test. recommend to follow up with Dr. Echols after discharge. 2. Hyperlipidemia: She was continued on atorvastatin 80 mg by mouth daily 3. COPD: She has a history of COPD, not on home oxygen, was not in acute exacerbation, saturation 96-97% room air. She was continued on TRC and Nebs and remained stable throughout her hospital stay. 4. HFrEF: The patient has a history of systolic congestive heart failure. Echo in May 2015 showed an EF of 35%, echocardiogram in [facility] admission showed an EF of 55% to 60% with abnormal septal motion consistent with left bundle branch block. She was continued on Lasxi 20 mg Po Daily which is her home dose with no evidence of acute decompensation on this admission. 6. Hypertension: She was continued on carvedilol during this hospital stay with adequate control of BP. 7. History of smoking: She was on a nicotine patch. 8. Heart healthy diet 9. IV heparin as DVT prophylaxis 10. Full CODE STATUS Allergies: Coded Allergies: ibuprofen (Severe, ANAPHYLAXIS 09/02/15) morphine (Severe, ANAPHYLAXIS 09/02/15) oxycodone (From OXYCONTIN) (Severe, ANAPHYLAXIS 09/02/15) Significant Procedures: Stress Test Pertinent Lab Results: Laboratory Tests 09/22/16 1155: APTT 97 H 09/22/16 0650: Anion Gap 6, Estimated GFR > 60, BUN/Creatinine Ratio 24.3, Magnesium 1.9, CBC w Diff NO MAN DIFF REQ, RBC 3.65 L, MCV 89.1, MCH 29.5, RDW 15.5 H, MPV 9.1, Gran % 63.5, Lymphocytes % 26.0, Monocytes % 6.6, Eosinophils % 3.5, Basophils % 0.4, Absolute Granulocytes 5.2, Absolute Lymphocytes 2.1, Absolute Monocytes 0.5 , Absolute Eosinophils 0.3, Absolute Basophils 0, PUBS MCHC 33.1 09/21/16 2300: APTT 72 H 09/21/16 1550: APTT 36 09/21/16 0410: Anion Gap 6, Estimated GFR > 60, BUN/Creatinine Ratio 30.0 H, Magnesium 1.6, Triglycerides 37, Cholesterol 112, LDL Cholesterol, Calc 69, HDL Cholesterol 36 L, Cholesterol/HDL Ratio 3, APTT > 120 *H, CBC w Diff NO MAN DIFF REQ, RBC 3.64 L, MCV 89.5, MCH 28.9, RDW 15.4 H, MPV 8.2, Gran % 66.3, Lymphocytes % 22.7, Monocytes % 7.0, Eosinophils % 3.7, Basophils % 0.3, Absolute Granulocytes 6.0, Absolute Lymphocytes 2.0, Absolute Monocytes 0.6, Absolute Eosinophils 0.3, Absolute Basophils 0, PUBS MCHC 32.3 L 09/20/16 2105: APTT 32 09/20/16 1203: Troponin I < 0.01 Disposition Summary Disposition Principal Diagnosis: Unstable Angina Additional Diagnosis: 1. HFrEF 2. HTN 3. COPD Discharge Disposition: home or self care Discharge Instructions General Discharge Information Code Status: Full Code Patient's Diet: 1. Heart Healthy Patient's Activity: As tolerated Follow-Up Instructions/Appts: 1. Please follow up with Dr. Retana after discharge 2. Continue with the medications as prescribed 3. In case of chest pain, shortness of breath, palpitations, please go to the Ed or call your doctor Medications at Discharge Discharge Medications: Stop taking the following medications: Carvedilol (Coreg) 12.5 MG TAB ORAL TWICE DAILY Qty = 30 Continue taking these medications: Aspirin (Aspirin) 81 MG CTB 81 Milligram ORAL Every Day Comments: Last Taken: 07/02/15 Time: 10:40 AM Atorvastatin (Atorvastatin Calcium) 80 MG TAB 80 Milligram ORAL Every Day Comments: Last Taken: 07/01/15 Time: 5:00 PM CYCLOBENZAPRINE HCL (Flexeril) 10 MG TAB 15 Milligram ORAL TWICE DAILY Comments: Last Taken: 07/02/15 Time: 10:40 AM Fluticasone-Salmeterol (Advair 100-50 Diskus) 1 UNIT INH 1 PUFF Inhale through mouth TWICE DAILY Comments: Last Taken: 07/02/15 Time: 10:40 AM SYMBICORT GIVEN WHILE IN HOSPITAL Docusate Sodium (Colace) 100 MG SGL 1 Capsule ORAL TWICE DAILY Comments: Last Taken: 07/02/15 Time: 10:40 AM Zolpidem Tartrate (Ambien 10MG) 10 MG TAB 1 Tablet ORAL Every night Qty = 30 Comments: Last Taken: 07/01/15 Time: 10:45 PM OXYCODONE HCL (Oxycodone HCl) 30 MG TAB 1 Tablet ORAL THREE TIMES DAILY Qty = 105 Comments: Last Taken: 07/02/15 Time: 10:40 AM Montelukast Sodium (Singulair) 10 MG TAB 1 Tablet ORAL DAILY Qty = 30 Comments: Last Taken: 07/02/15 Time: 10:40 AM Furosemide (Lasix) 20 MG TAB 1 Tablet ORAL DAILY Qty = 30 Comments: Last Taken: 07/02/15 Time: 10:40 AM Dexlansoprazole (Dexilant) 60 MG CAP.DR.BP 1 Capsule ORAL DAILY Qty = 30 Comments: Last Taken:NOT GIVEN THIS ADMISSION Time: Pantoprazole Sodium (Protonix) 40 MG TABLET.DR 1 Tablet ORAL DAILY Days = 30 Comments: Last Taken:NOT GIVEN THIS ADMISSION Time: PRILOSEC GIVEN TODAY AT 6:42A.M Lisinopril (Lisinopril) 40 MG TABLET 1 Tablet ORAL DAILY Comments: Last Taken:NOT GIVEN THIS ADMISSION Time: Start taking the following new medications: Carvedilol (Coreg) 6.25 MG TABLET 3.125 Milligram ORAL TWICE DAILY Qty = 60 No Refills Comments: Last Taken:09/21/16 Time:10:33P.M Copies To: Stalin RETANA MD
--- NOTE | 2016-09-23 09:11 | Patient Discharge Instructions ---
Discharge Instructions General Discharge Information You were seen/treated for: Unstable Angina You had these procedures: Stress Test Special Instructions: 1. Please follow up with Dr. Echols after discharge. Call his office on Monday to make an appointment. 2. Continue with the medications as prescribed 3. In case of chest pain, shortness of breath, palpitations, please go to the Ed or call your doctor Diet Continue normal diet: No Recommended Diet: Heart Healthy, Low Fat Activity Full Activity/No Limits: Yes Acute Coronary Syndrome Inclusion Criteria At DC or during hospital stay patient has or had the following: ACS DIAGNOSIS Yes Discharge Core Measures Meds if any: Prescribed or Continued at Discharge KENDY/ARB if EF <40% No Aspirin Yes Beta-Kye Yes Statin Yes Meds if any: NOT Prescribed or Continued at Discharge No KENDY/ARB d/t EF > 50% Congestive Heart Failure Inclusion Criteria At DC or during hospital stay patient has or had the following: CHF DIAGNOSIS No Discharge Core Measures Meds if any: Prescribed or Continued at Discharge Meds if any: NOT Prescribed or Continued at Discharge Cerebrovascular accident Inclusion Criteria At DC or during hospital stay patient has or had the following: CVA/TIA Diagnosis No Discharge Core Measures Meds if any: Prescribed or Continued at Discharge Meds if any: NOT Prescribed or Continued at Discharge Venous thromboembolism Inclusion Criteria VTE Diagnosis No VTE Type NONE VTE Confirmed by (Test) NONE Discharge Core Measures - Per Current guidelines, there needs to be overlap - treatment for the first 5 days of Warfarin therapy. - If discharged on Warfarin prior to 5 days of - overlap therapy, the patient will need to be - assessed for post discharge needs including - *Post discharge parental anticoagulation - *Warfarin and/or parental anticoagulation education - *Follow up date to check INR post discharge At least 5 days overlap therapy as Inpatient No Meds if any: Prescribed or Continued at Discharge Note: Overlap Therapy is Warfarin and Anticoagulant Meds if any: NOT Prescribed or Continued at Discharge
--- NOTE | 2016-09-23 13:12 | PN- Cardiology ---
Subjective Subjective: Doing very well today. No further symptoms. Awaiting results of stress test. Objective Vital Signs and I&Os Vital Signs Date Time Temp Pulse Resp B/P Pulse O2 O2 Flow FiO2 Ox Delivery Rate 09/23 0800 98.8 86 20 136/70 98 Room Air 09/22 2251 98.0 79 20 124/78 95 Room Air 09/22 1530 97.7 80 20 138/80 95 Room Air Intake & Output 09/23 1600 09/23 0800 09/23 0000 09/22 1600 09/22 0800 09/22 0000 Intake Total 240 400 480 290 880 Output Total 600 Balance 240 400 -120 290 880 Intake, IV 240 160 Intake, Oral 240 400 480 50 720 Output, Urine 600 Current Medications: Current Medications Sig/Lenny Start time Last Medication Dose Route Stop Time Status Admin Acetaminophen 650 MG Q6P PRN 09/20 1015 AC PO Albuterol Sulfate 2 PUF Q4 HRS NEEDED PRN 09/20 2230 AC INH Aspirin 81 MG DAILY 09/21 1000 AC 09/23 PO 1103 Atorvastatin Calcium 80 MG 1700 09/20 1700 AC 09/22 PO 1709 Budesonide/ 2 PUF BID 09/20 1042 AC 09/23 Formoterol Fumarate INH 1103 Cyclobenzaprine HCl 15 MG BID 09/20 2200 AC 09/23 PO 1104 Docusate Sodium 100 MG BID 09/20 2200 AC 09/23 PO 1103 Furosemide 20 MG DAILY 09/20 1043 AC 09/23 PO 1103 Heparin Sodium 5,000 UNIT Q8 09/23 0824 AC 09/23 (Porcine) SC 1104 Heparin Sodium 25,000 UNIT Q24H 09/20 1215 DC 09/22 (Porcine) IV 1015 Sodium Chloride 500 ML Montelukast Sodium 10 MG DAILY 09/20 1043 AC 09/23 PO 1103 Nicotine 14 MG DAILY 09/20 1108 AC 09/23 TOP 1104 Omeprazole 40 MG DAILY AC 09/20 1300 AC 09/23 PO 0642 Oxycodone HCl 30 MG TID 09/20 1043 AC 09/23 PO 1111 Zolpidem Tartrate 10 MG .STK-MED ONE 09/22 2038 DC PO 09/22 2040 Zolpidem Tartrate 10 MG QPM 09/20 2200 AC 09/22 PO 2219 Results Last 48 Hrs of Labs/Mics: Laboratory Tests 09/22/16 1155: APTT 97 H 09/22/16 0650: Anion Gap 6, Estimated GFR > 60, BUN/Creatinine Ratio 24.3, Magnesium 1.9, CBC w Diff NO MAN DIFF REQ, RBC 3.65 L, MCV 89.1, MCH 29.5, RDW 15.5 H, MPV 9.1, Gran % 63.5, Lymphocytes % 26.0, Monocytes % 6.6, Eosinophils % 3.5, Basophils % 0.4, Absolute Granulocytes 5.2, Absolute Lymphocytes 2.1, Absolute Monocytes 0.5 , Absolute Eosinophils 0.3, Absolute Basophils 0, PUBS MCHC 33.1 09/21/16 2300: APTT 72 H 09/21/16 1550: APTT 36 Assessment/Plan Assessment/Plan ASSESSMENT- 1. Unstable angina 2. Known CAD s/p stents in 2009 3. HTN 4. HLD 5. Current nicotine use 6. COPD 7. HFrEF, echo May 2015 showed an EF of 35% Recommendations: -Continue current medication regimen. -If the results of the patient's nuclear scans are unrevealing, the patient can be discharged home today. -Follow-up with Dr. Echols as outpatient for further plans. Continue telemetry? Yes
[2016-09-23] MEDS ORDERED: PROTONIX40 M3 PO (13:59)
--- NOTE | 2016-09-23 15:54 | NUCLEAR MEDICINE REPORT ---
PERSANTINE STRESS AND RESTING SPECT MYOCARDIAL PERFUSION IMAGING STUDY WITH GATED SPECT IMAGES: CLINICAL INDICATION: Coronary artery disease, stents, left bundle branch block. PROCEDURE: Regional myocardial perfusion was assessed using a 2 day protocol. Stress images were obtained on 09/22/2016 following the intravenous administration of 50.8 mCi Tc 99m Myoview. Stress consisted of 60 mg Persantine given intravenously. Following the sestamibi injection no aminophylline was given intravenously. Rest images were obtained 09/23/2016 following the intravenous administration of 51.8 mCi Technetium 99m Myoview. Single photon emission tomographic (SPECT) images were obtained. SPECT images were acquired in a 64 x 64 matrix of 64 projections over 180 degrees. These were reconstructed into standard short axis, horizontal and vertical long axis cardiac projections. FINDINGS: The post stress images show the left ventricular chamber to be moderately dilated. There is markedly diminished activity diffusely in the inferior wall. There is moderately to markedly decreased activity in the apical septal wall in this extends into the adjacent apical anterior wall. The activity in the other savage appears normal. The rest images show some improvement the apical septal an apical anterior savage compared to the post stress images. The other savage are unchanged from the post stress images. The images were obtained using a gated SPECT technique, which permits visualization of wall motion and calculation of the left ventricular ejection fraction. There is mild diffuse left ventricular hypokinesis. No definite focal component is present. The calculated left ventricular ejection fraction is 44% on the stress study. Compared to the previous study dated 05/21/2015, there has been a significant improvement the perfusion to the septum, particularly the mid inferoseptal wall which shows a marked improvement on both the stress and rest images of the current study, compared to the previous study. The gated images of the previous study are not available for review and therefore the wall motion cannot be compared. Ejection fraction is significantly higher than on the previous study when it was 27%. IMPRESSION: Abnormal study. Perfusion abnormalities persist in the inferior and apical septal savage with some extension of the latter abnormality into the adjacent apical anterior wall. There is some reversible component present in the apical septal and apical anterior savage but the abnormalities in the inferior wall appear fixed. There has been a significant improvement compared to 05/21/2015 in perfusion, particularly in the mid inferoseptal wall, and ejection fraction is significantly improved from that date.
[2016-09-23] MEDS ORDERED: LISINOPRIL40 M1 PO (16:21)
--- NOTE | 2016-09-23 16:24 | Event Note ---
Event Note Event Note: Spoke with Dr. Moncada. The Stress Test was done that showed some changes that need to be monitored as an out patient for further management. Updated the patient and recommended to follow up with Dr. Echols Monday for further management. We will continue with the same medications and the patient is safe to be discharged home.
[2016-09-23 16:42] VITALS: BP 138/72
--- NOTE | 2016-09-27 14:03 | IV DIPYRIDAMOLE NUCLEAR STRESS ---
Clinical Diagnosis: Chest pain; R/O ischemia Livestock Sales Representative: Elba Khoury Date of Service: 09/22/16 IV DIPYRIDAMOLE INFUSED: 60 mg IV AMINOPHYLLINE INFUSED: 0 mg PATIENT WEIGHT: 323 lbs INTERPRETATION: The patient's baseline EKG showed normal sinus rhythm left bundle branch block at 70 BPM. Baseline B/P 124/70. The patient received 60 mg of dipyridamole infused intravenously over a 4 minute period. TC-99M or Myoview was injected after dipyridamole infusion. The patient tolerated the infusion well. There were no EKG changes seen following pharmacologic infusion. Arrhythmias: None IMPRESSION: The test was supervised by the interpreting It Security Consultant, who was in attendance during the entire test. No EKG evidence of stress induced myocardial ischemia. See separately dictated Nuclear Report.
== END 2016-09-23 17:27 | DRG 198 ==
LOC: ENRESERVTM → ENRESERVDT → ERH 03:29 → ERHI 08:48 → 1NO 15:33 → ENPENDDIS 09-21 10:17 → 1NO 09-21 10:17
PROVIDERS: Emergency Medicine; Internal Medicine; Specialist; Student in an Organized Health Care Education/Training Program; ADMIT Internal Medicine Cardiovascular Disease
DX: I25.110 Atherosclerotic heart disease of native coronary artery with unstable angina pectoris (principal); I11.0 Hypertensive heart disease with heart failure; I50.22 Chronic systolic (congestive) heart failure; Z68.43 Body mass index [BMI] 50.0-59.9, adult; E66.01 Morbid (severe) obesity due to excess calories; J45.909 Unspecified asthma, uncomplicated; F17.210 Nicotine dependence, cigarettes, uncomplicated; G47.30 Sleep apnea, unspecified; K21.9 Gastro-esophageal reflux disease without esophagitis; G89.29 Other chronic pain; I44.7 Left bundle-branch block, unspecified; E78.5 Hyperlipidemia, unspecified
CPT/HCPCS: 1NSP; 36415; 78452; 82436; 93005; 93010; 93016; 93017; 93306; A9502; J1245; J1644; J3490

== ENCOUNTER 2016-12-12 22:21 | Emergency (ER) | payer OTHER ==
[~2016-12-12] VITALS: Ht 170.2 cm; Wt 147.9 kg
[~2016-12-12 22:21] MED LIST changes: +COREG6.25 M1 PO; +DEXILANT60 M1 PO; +LISINOPRIL40 M1 PO; +PROTONIX40 M3 PO
--- NOTE | 2016-12-12 23:48 | ED GENERAL ADULT ---
History of Present Illness General Chief Complaint: General Adult Stated Complaint: "PER PT URINE DARK AND SMELLS BAD,BODY PAIN" Source: patient Exam Limitations: no limitations Vital Signs & Intake/Output Vital Signs & Intake/Output Vital Signs Date Time Temp Pulse Resp B/P B/P Pulse O2 O2 Flow FiO2 Mean Ox Delivery Rate 12/13 0101 97.3 76 18 181/75 96 Room Air 12/12 2227 96.8 89 16 135/82 97 Room Air ED Intake and Output 12/13 0000 12/12 1200 Intake Total Output Total Balance Patient 326 lb Weight Weight Reported by Patient Measurement Method Allergies Coded Allergies: ibuprofen (Severe, ANAPHYLAXIS 09/02/15) morphine (Severe, ANAPHYLAXIS 09/02/15) oxycodone (From OXYCONTIN) (Severe, ANAPHYLAXIS 09/02/15) Reconcile Medications Aspirin 81 MG CTB 81 MG PO D HEART (Reported) Atorvastatin (Atorvastatin Calcium) 80 MG TAB 80 MG PO D HEART (Reported) Benzonatate (Tessalon Perle) 100 MG CAPSULE 1 CAP PO TID PRN COUGH Carvedilol (Coreg) 6.25 MG TABLET 3.125 MG PO BID chest pain CYCLOBENZAPRINE HCL (Flexeril) 10 MG TAB 15 MG PO BID MUSCLE (Reported) Dexlansoprazole (Dexilant) 60 MG CAP.BP 1 CAP PO DAILY GERD (Reported) Docusate Sodium (Colace) 100 MG SGL 1 CAP PO BID STOOL SOFTENER (Reported) Fluticasone-Salmeterol (Advair 100-50 Diskus) 1 UNIT INH 1 PUFF INH BID ASTHMA (Reported) Furosemide (Lasix) 20 MG TAB 1 TAB PO DAILY FLUID OVERLOAD Lisinopril 40 MG TABLET 1 TAB PO DAILY BP (Reported) Montelukast Sodium (Singulair) 10 MG TAB 1 TAB PO DAILY ALLERGIES (Reported) Nitrofurantoin Monohyd/M-Cryst (Macrobid 100 MG Capsule) 100 MG CAPSULE 1 CAP PO BID UTI with food OXYCODONE HCL (Oxycodone HCl) 30 MG TAB 1 TAB PO TID PAIN (Reported) Pantoprazole Sodium (Protonix) 40 MG TABLET.DR 1 TAB PO DAILY GERD (Reported) Zolpidem Tartrate (Ambien 10MG) 10 MG TAB 1 TAB PO QPM SLEEP (Reported) Triage Note: "MY URINE SMELLS VERY BAD" AND C/O UPPER BACK PAIN X3 WEEKS. C/O LEFT SIDED BODY PAIN AND SWELLING TO LLE. REPORTS DIFFICULTY WALKING DUE TO PAIN. REPORTS POOR WATER INTAKE. AFEBRILE IN TRIAGE Triage Nurses Notes Reviewed? yes Onset: Gradual Duration: week(s): (3) Timing: no prior history Injury Environment: home Severity: moderate No Modifying Factors: none Associated Symptoms: cough HPI: Patient is a 61-year-old female presenting to the emergency department with chief complaint of low back pain, foul-smelling urine, urinary frequency and darker urine over the past 3 weeks. No abdominal pain. Denies chest pain. She does report that she has had an intermittent dry cough. No sputum production. No fevers or chills at home. Back pain is worse with movement. Denies any known injury. No heavy lifting. Denies numbness or tingling. She does admit to not drinking enough water daily. No sick contacts or recent travel. Denies diarrhea or constipation. She does report intermittent back pain radiating down the left lower extremity. Denies any lower extremity weakness. (KATELIN RODRIGUEZ) Past History Travel History Traveled to [place] past 21 day No Medical History Any Pertinent Medical History? 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 BROTHER (CVA, hypertension and diabetes). SISTER (Hypertension, pulmonary embolism). Hx Contributory? No (KATELIN RODRIGUEZ) Review of Systems Review of Systems Constitutional: Reports: no symptoms. Comments Review of systems: See HPI, All other systems negative. Constitutional, no chills fever or weight loss HEENT: No visual changes no sore throat no congestion Cardiovascular: No chest pain ,palpitation , orthopnea or ankle swelling Skin, no jaundice no rashes Respiratory: No dyspnea sputum or hemoptysis GI: No nausea no vomiting : No hematuria Muscle skeletal: no neck pain, Neurologic: No numbness no confusion, no headaches Psych: No stress anxiety or depression,. Heme/endocrine: No bruising no bleeding no polyuria or polydipsia Immunology: No splenectomy or history of AIDS (KATELIN RODRIGUEZ) Physical Exam Physical Exam General Appearance: no apparent distress, alert, awake, comfortable, obese Comments: Well-developed well-nourished person in no acute distress HEENT: Pupils equally round and reactive to light and accommodation. Nose is atraumatic. Neck: Supple, no lymphadenopathy, normal range of motion without pain or tenderness, no C-spine tenderness. Full range of motion. Back: Tender to palpation over the lumbar paraspinal muscles bilaterally. Also tenderness to palpation along the thoracic paraspinal muscles. No bony tenderness. No CVA tenderness. Limited range of motion with for flexion secondary to pain. Cardiovascular: Regular rate and rhythms no murmurs rubs or gallops, normal JVP Respiratory: Chest nontender. No respiratory distress.breath sounds diminished to auscultation bilaterally, dry cough on exam. Abdomen: Soft, nontender nondistended, no appreciable organomegaly. Extremity: No edema, no calf tenderness to palpation, normal and equal pulses. Full range of motion of upper and lower extremities without difficulty. negative dominic sign bilaterally. Neuro: Alert oriented x3 Skin: No appreciable rash on exposed skin, skin is warm and dry. Psych: Mood and affect is normal, memory and judgment is normal. Core Measures ACS in differential dx? No CVA/TIA Diagnosis: No Severe Sepsis Present: No Septic Shock Present: No (KATELIN RODRIGUEZ) Progress Differential Diagnoses I considered the following diagnoses in my evaluation of the patient: UTI, pyelonephritis, hydronephrosis, kidney stone, pneumonia, bronchitis, sciatica, herniated disc Plan of Care: Orders Procedure Date/time Status Add-on Test (ER Only) 12/13 0040 Active CULTURE,URINE 12/12 2345 Active URINALYSIS 12/12 2228 Complete Laboratory Tests 12/12/16 2345: Urinalysis MANY H, Urine Color STRAW, Urine Clarity TURBD H, Urine pH 7.0, Ur Specific [place] 1.020, Urine Protein TRACE H, Urine Ketones NEG, Urine Nitrite NEG, Urine Bilirubin NEG, Urine Urobilinogen 1.0, Ur Leukocyte Esterase TRACE H , Ur Microscopic SEDIMENT EXAMINED, Urine WBC 5-10 H, Ur Epithelial Cells MANY H, Urine Bacteria MANY H, Urine Hemoglobin NEG, Urine Glucose NEG Microbiology 12/12 2345 URINE ROUT: Urine Culture - RECD Diagnostic Imaging: Viewed by Me: Radiology Read. Discussed w/RAD: Radiology Read. Radiology Impression: PATIENT: CRYSTAL LOFTON PRESENT AGE: 61 PATIENT ACCOUNT NO: [id number] : 53 LOCATION: [facility] ORDERING PHYSICIAN: KATELIN LÓPEZ SERVICE DATE: 12/13/16 EXAM TYPE: RAD - XRY-CHEST XRAY, PA AND LATERAL EXAMINATION: XR CHEST CLINICAL INFORMATION: Cough. COMPARISON: Chest x-ray 09/20/2016. CT of chest 03/31/2016. TECHNIQUE: 2 views of the chest were obtained. FINDINGS: Chronic increased interstitial lung markings of interstitial lung disease stable since prior study. No acute infiltrate. No acute pulmonary vascular congestion or pleural effusion. Cardiac and mediastinal contours are normal. Transpedicular screws at lower cervical spine. Multilevel degenerative change of dorsal spine. IMPRESSION: Chronic interstitial lung disease. No acute abnormality of the chest. Initial ED EKG: none (FAIZA LÓPEZ,KATELIN) Departure Departure Time of Disposition: 56 Disposition: HOME OR SELF CARE Condition: Stable Clinical Impression Primary Impression: Urinary tract infection Qualifiers: Urinary tract infection type: site unspecified Hematuria presence: without hematuria Qualified Code: N39.0 - Urinary tract infection, site not specified Secondary Impressions: Back pain Qualifiers: Back pain location: low back pain Chronicity: unspecified Back pain laterality: unspecified Sciatica presence: unspecified whether sciatica present Qualified Code: M54.5 - Low back pain Referrals: AMI BATISTA APRN (PCP/Family) Additional Instructions: Follow-up with your primary care physician call to make an appointment. Take antibiotics as prescribed. Use inhaler as directed. Take cough medication as directed. Increase fluid intake. Departure Forms: Customer Survey D/C INS-APPENDICITIS EXCLUSION General Discharge Information Prescriptions: Current Visit Scripts Nitrofurantoin Monohyd/M-Cryst (Macrobid 100 MG Capsule) 1 CAP PO BID #14 CAP with food Benzonatate (Tessalon Perle) 1 CAP PO TID PRN COUGH #20 CAP (KATELIN RODRIGUEZ) PA/GARBAGE PERSON Co-Sign Statement Statement: ED Attending supervision documentation- [] I saw and evaluated the patient. I have also reviewed all the pertinent lab results and diagnostic results. I agree with the findings and the plan of care as documented in the PA's/GARBAGE PERSON's documentation. [X] I have reviewed the ED Record and agree with the PA's/GARBAGE PERSON's documentation. [] Additions or exceptions (if any) to the PAs/GARBAGE PERSON's note and plan are summarized below: [] (SHEEBA JARA,JED) Critical Care Note Critical Care Note Critical Care Time: non-applicable (KATELIN RODRIGUEZ)
[2016-12-13 01:01] VITALS: BP 181/75
--- NOTE | 2016-12-13 01:10 | RADIOLOGY REPORT ---
EXAMINATION: XR CHEST CLINICAL INFORMATION: Cough. COMPARISON: Chest x-ray 09/20/2016. CT of chest 03/31/2016. TECHNIQUE: 2 views of the chest were obtained. FINDINGS: Chronic increased interstitial lung markings of interstitial lung disease stable since prior study. No acute infiltrate. No acute pulmonary vascular congestion or pleural effusion. Cardiac and mediastinal contours are normal. Transpedicular screws at lower cervical spine. Multilevel degenerative change of dorsal spine. IMPRESSION: Chronic interstitial lung disease. No acute abnormality of the chest.
[2016-12-13] MEDS ORDERED: MACROBID 100 M100 MG PO (01:13)
[2016-12-13] MEDS ORDERED: TESSALON PERLE100 M1 PO (01:14)
== END 2016-12-13 01:24 ==
LOC: ERH 22:21
DX: N39.0 Urinary tract infection, site not specified (principal)
CPT/HCPCS: 81001; 87086